=== PATIENT | male | born 1990 | race Caucasian/White ===

== ENCOUNTER 2018-03-10 10:36 | Day surgery (SDC) | payer OTHER ==
[2018-03-10] MEDS: NS 1,000 ML IV (11:10)
[2018-03-10] MEDS ORDERED: LIDOCAINE 2% INJ 100 MG/5 ML SDV (FOR ANES.) As Ordered (12:12)
[2018-03-10] MEDS ORDERED: PROPOFOL 200 MG/20 ML VIAL As Ordered ×2 (12:12→12:17)
== END 2018-03-10 13:00 | disposition home or self-care (01) ==
LOC: M OPP 10:36
DX: K52.9 Noninfective gastroenteritis and colitis, unspecified (principal); K64.8 Other hemorrhoids; Z91.011 Allergy to milk products
CPT/HCPCS: 45380